=== PATIENT | male | born 1985 | race Caucasian/White ===

== ENCOUNTER 2017-09-02 19:25 | Emergency (ER) | payer SELFPAY ==
[2017-09-02 21:32] LABS: BASOPHIL % 0.5 % (0-2); PLATELET COUNT 209 x10^3mcL (130-400); RED CELL DISTRIBUTION WIDTH 13.9 % (11.5-14.5)
[2017-09-02 22:25] LABS: ALBUMIN 3.8 g/dL (3.4-5.0); ALKALINE PHOSPHATASE 102 U/L (46-116); ALT/SGPT 190 U/L (16-63); AST/SGOT 122 U/L (15-37); BILIRUBIN TOTAL 0.5 mg/dL (0.20-1.00); CALCIUM 9.2 mg/dL (8.5-10.1); CARBON DIOXIDE 31.7 mmol/L (21-32); CHLORIDE SERUM 103 mmol/L (98-107); CREATININE SERUM 0.9 mg/dL (0.7-1.3); GFR1 > 60 mL/min; GLUCOSE SERUM 104 mg/dL (74-106); LIPASE 161 IU/L (73-393); POTASSIUM SERUM 4.2 mmol/L (3.5-5.1); SODIUM SERUM 139 mmol/L (136-145); TOTAL PROTEIN, SERUM 8.3 g/dL (6.4-8.2)
[2017-09-02 23:05] VITALS: BP 133/84
== END 2017-09-02 23:05 | disposition home or self-care (01) ==
LOC: ED 19:25
PROVIDERS: Emergency Medicine
DX: F41.1 Generalized anxiety disorder (principal); R94.5 Abnormal results of liver function studies; F10.10 Alcohol abuse, uncomplicated
CPT/HCPCS: 36415; 82962; J1885